=== PATIENT | female | born 1960 | race Two or more races ===

== ENCOUNTER 2021-07-01 12:03 | Emergency (ER) | payer OTHER ==
[~2021-07-01] VITALS: Ht 152.4 cm; Wt 79.4 kg
[~2021-07-01 12:03] MED LIST: TRAMADOL HCL50 MG; ZANTAC 7575 MG
[2021-07-01] MEDS ORDERED: RAMIPRIL5 MG PO (12:45)
== END 2021-07-01 16:03 | disposition home or self-care (01) ==
LOC: ER 12:03
DX: N92.6 Irregular menstruation, unspecified (principal)